=== PATIENT | female | born 1960 | race Caucasian/White ===

== ENCOUNTER 2023-10-28 21:27 | Emergency (ER) | payer OTHER ==
[2023-10-28 21:47] VITALS: TEMP 97.1
--- NOTE | 2023-10-28 21:52 | ERPHSYRPT ---
- History of Present Illness Time Seen by Provider: 10/28/23 21:40 Source: patient Exam Limitations: no limitations Physician History: 63yo f presents to ED via private vehicle for right 4th toe pain and swelling. Pt reports she stubbed her toe while moving her couch yesterday, states the toe has been painful and bruised all day today. Pt reports she thinks the swelling is progressing up her foot and wanted to have it examined. Pt is able to ambulate w/o difficulty, pt able to move all toes, pedal pulses intact, cap refill in toes < 2sec. Pt reports she "took a friend's percocet" this evening around 20:00 w/ some relief. Method of Injury: direct blow Occurred: yesterday Quality: constant Severity of Pain-Max: moderate Severity of Pain-Current: mild Lower Extremities Pain: 4th toe: right Modifying Factors: Improves With: cold therapy, pain medication Associated Symptoms: none Allergies/Adverse Reactions: No Known Drug Allergies Allergy (Unverified 10/28/23 21:33) - Review of Systems Constitutional: No Symptoms Respiratory: No Symptoms Cardiac: No Symptoms Musculoskeletal: Injury - Nursing Vital Signs Nursing Vital Signs: Initial Vital Signs Temperature 97.1 F 10/28/23 21:33 Pulse Rate 71 10/28/23 21:33 Respiratory Rate 18 10/28/23 21:33 Blood Pressure 114/69 10/28/23 21:33 O2 Sat by Pulse Oximetry 96 10/28/23 21:33 Pain Scale Pain Intensity 4 - Physical Exam General Appearance: no apparent distress, alert Cardiovascular/Respiratory Exam: chest non-tender, regular rate/rhythm, no respiratory distress Foot Exam: right foot: ecchymosis (4th toe), pain (4th toe), swelling (4th toe, minimal), left foot: non-tender, normal inspection, normal range of motion, no evidence of injury Neuro/Tendon Exam: normal sensation, normal motor functions Mental Status Exam: alert, oriented x 3, cooperative Skin Exam: normal color SpO2 Interpretation: normal O2 Delivery: Room Air Ordered Tests: Active Orders 24 hr Category Date Time Status FOOT (MINIMUM 3 VIEWS) Stat Exams 10/28/23 21:40 Taken Medication Summary Discontinued Medications Generic Name Dose Route Start Last Admin Trade Name Freq PRN Reason Stop Dose Admin Ibuprofen 600 mg 10/28/23 21:45 10/28/23 21:56 Ibuprofen 600 Mg Tablet PO 10/28/23 21:46 600 mg STAT ONE Administration Ibuprofen Confirm 10/28/23 21:55 Ibuprofen 600 Mg Tablet Administered 10/28/23 21:56 Dose 600 mg .ROUTE .STK-MED ONE - Progress Progress: improved Progress Note: 10/28/23 22:23 foot xr shows small fx of right 4th mid phalanx pt does not want ade tape or splint on toe recommend ice for swelling ibuprofen/tylenol for pain RICE as possible return to ED if: unable to walk, pain becomes unbearable f/u w/ ortho or podiatry if pain does not resolve Counseled pt/family regarding: diagnosis, rad results Medical Desision Making - Diagnostic Testing Diagnostic test were ordered, analyzed, and reviewed by me: Yes Radiological Interpretation: Interpreted by me, Reviewed by me - Risk of complications Minimal Risk: Minimal risk of morbidity - Departure Departure Disposition: Home Clinical Impression: Fracture of fourth toe, right, closed Qualifiers: Encounter type: initial encounter Qualified Code(s): S92.501A - Displaced unspecified fracture of right lesser toe(s), initial encounter for closed fracture Condition: Stable Critical Care Time: No Referrals: [facility] [employer] [facility] [Primary Care Provider] - Follow up/PCP as directed Additional Instructions: recommend ice for swelling ibuprofen/tylenol for pain RICE as possible return to ED if: unable to walk, pain becomes unbearable f/u w/ ortho or podiatry if pain does not resolve
[2023-10-28] MEDS ORDERED: MOTRIN 600 MG ONE (21:55)
[2023-10-28] MEDS: MOTRIN 600 MG PO ONE (21:56)
[2023-10-28 22:37] VITALS: BP 116/75; PULSE 70; RESP 16; O2SAT 97
--- NOTE | 2023-10-29 07:36 | XRAY ---
Indication: Pain, swelling, and bruising. Comparison: July 21, 2023 3 nonweightbearing views right foot new minimally displaced tiny corner fracture base 3rd middle phalanx medial aspect with soft tissue swelling.. Stable osteopenia and small cuboid/navicular accessory ossicles. No other bony, articular, or soft tissue abnormalities.
== END 2023-10-28 22:40 | disposition home or self-care (01) ==
LOC: ED 21:27
DX: S93.501A Unspecified sprain of right great toe, initial encounter (principal); M79.671 Pain in right foot; W22.8XXA Striking against or struck by other objects, initial encounter
CPT/HCPCS: 73630; 99282; A9270-GY